=== PATIENT | female | born 1990 | race African-American/Black ===

== ENCOUNTER 2022-07-23 15:56 | Emergency (ER) | payer MEDICAID ==
[~2022-07-23] VITALS: Ht 154.9 cm; Wt 37.0 kg
[2022-07-23] MEDS ORDERED: SULF15DR26 RIGHTEYE (18:17)
[2022-07-23 18:38] VITALS: BP 114/90
== END 2022-07-23 19:32 | disposition home or self-care (01) ==
LOC: ER 15:56
DX: H10.89 Other conjunctivitis (principal); R56.9 Unspecified convulsions
CPT/HCPCS: 99283